=== PATIENT | female | born 1955 | race Caucasian/White ===

== ENCOUNTER 2021-02-09 13:54 | Inpatient (IN) | payer OTHER ==
[~2021-02-09] VITALS: Ht 157.5 cm; Wt 89.4 kg
[~2021-02-09 13:54] MED LIST: MIRAPEX0.5 MG PO; NORVASC5 MG PO; ZOLOFT50 MG PO
[2021-02-09 14:41] LABS: HEMOGLOBIN 15.3 gm/dl (12.3-15.3); RED BLOOD COUNT 4.87 M/UL (4.00-5.10); WHITE BLOOD COUNT 9.3 K/UL (4.5-11.0)
[2021-02-09 15:00] LABS: BUN/CREATININE RATIO 16 (0-10)
[2021-02-09] MEDS ORDERED: ATROVENT HFA12.9 GM PO (17:01)
[2021-02-10 04:30] LABS: HEMOGLOBIN 14.5 gm/dl (12.3-15.3); RED BLOOD COUNT 4.62 M/UL (4.00-5.10); WHITE BLOOD COUNT 9.6 K/UL (4.5-11.0)
[2021-02-10 17:21] LABS: ACINETOBACTER BAUMANNII Not Detected (Negative); CANDIDA ALBICANS Not Detected (Negative); CANDIDA KRUSEI Not Detected (Negative); CANDIDA TROPICALIS Not Detected (Negative); ENTEROCOCCUS Not Detected (Negative); ESCHERICHIA COLI Not Detected (Negative); HAEMOPHILUS INFLUENZAE Not Detected (Negative); KLEBSIELLA OXYTOCA Not Detected (Negative); KLEBSIELLA PNEUMONIAE Not Detected (Negative); KPC-CARBAPENEM-RESISTANCE GENE Not Detected (Negative); PROTEUS Not Detected (Negative); PSEUDOMONAS AERUGINOSA Not Detected (Negative); SERRATIA MARCESANS Not Detected (Negative); STAPHYLOCOCCUS AUREUS Not Detected (Negative); STREP AGALACTIAE (GROUP B) Not Detected (Negative); STREP PYOGENES (GROUP A) Not Detected (Negative); STREPTOCOCCUS Not Detected (Negative); mecA (METHICILLIN RESIST GENE Not Detected (Negative); vanA/B (VANCOMYCIN RESIST GENE Not Detected (Negative)
[2021-02-10 18:45] LABS: STAPHYLOCOCCUS DETECTED (Negative)
[2021-02-11 03:50] LABS: HEMOGLOBIN 12.8 gm/dl (12.3-15.3); WHITE BLOOD COUNT 8.5 K/UL (4.5-11.0)
[2021-02-11 04:09] LABS: RED BLOOD COUNT 4.15 M/UL (4.00-5.10)
[2021-02-11 04:15] LABS: BUN/CREATININE RATIO 18 (0-10)
[2021-02-12 04:27] LABS: RED BLOOD COUNT 3.92 M/UL (4.00-5.10); WHITE BLOOD COUNT 7.9 K/UL (4.5-11.0)
[2021-02-12 04:58] LABS: BUN/CREATININE RATIO 23 (0-10)
[2021-02-13 05:11] LABS: RED BLOOD COUNT 3.89 M/UL (4.00-5.10)
[2021-02-13 05:12] LABS: WHITE BLOOD COUNT 10.3 K/UL (4.5-11.0)
[2021-02-13 05:33] LABS: BUN/CREATININE RATIO 22 (0-10)
[2021-02-14 04:20] LABS: HEMOGLOBIN 11.9 gm/dl (12.3-15.3); RED BLOOD COUNT 3.93 M/UL (4.00-5.10); WHITE BLOOD COUNT 8.3 K/UL (4.5-11.0)
[2021-02-14 04:28] LABS: BUN/CREATININE RATIO 27 (0-10)
--- NOTE | 2021-02-14 09:24 | NUR ---
PATIENT O2 SATS ARE FLUCTUATING BETWEEN 85%AND 88%. PATIENT IS NO ACUTE DISTRESS. PROVIDER MADE AWARE. NEW ORDERS GIVEN.
[2021-02-14 13:13] LABS: ORGANISM ID Not indicated. (.); SPECIMEN SOURCE Urine (.); STREPTOCOCCUS PNEUMONIAE AG Negative (Negative)
[2021-02-15 05:19] LABS: RED BLOOD COUNT 3.93 M/UL (4.00-5.10); WHITE BLOOD COUNT 10.3 K/UL (4.5-11.0)
[2021-02-15 05:37] LABS: BUN/CREATININE RATIO 28 (0-10)
[2021-02-16 05:29] LABS: HEMOGLOBIN 12.9 gm/dl (12.3-15.3); RED BLOOD COUNT 4.23 M/UL (4.00-5.10); WHITE BLOOD COUNT 11.1 K/UL (4.5-11.0)
[2021-02-16 06:03] LABS: BUN/CREATININE RATIO 30 (0-10)
[2021-02-17 06:00] LABS: HEMOGLOBIN 13.2 gm/dl (12.3-15.3); RED BLOOD COUNT 4.53 M/UL (4.00-5.10); WHITE BLOOD COUNT 15.4 K/UL (4.5-11.0)
[2021-02-17 06:09] LABS: BUN/CREATININE RATIO 36 (0-10)
[2021-02-17] MEDS ORDERED: HUMIBID LA TAB600 MG PO (13:19)
[2021-02-17] MEDS ORDERED: PREDNISONE 20 M20 MG PO (13:19)
[2021-02-17] MEDS ORDERED: LEVOFLOXACIN750 MG PO (13:19)
[2021-02-17] MEDS ORDERED: PROAIR HFA8.5 GM INH (13:33)
== END 2021-02-17 14:57 | disposition home or self-care (01) | DRG 871 ==
LOC: ER1 13:54 → MED SURG 4 16:41 → CDU 16:41 → MED SURG 4 18:49
PROVIDERS: Emergency Medicine; Internal Medicine; Internal Medicine Pulmonary Disease; Physician Assistant; ADMIT Family Medicine
DX: A41.9 Sepsis, unspecified organism (principal); J18.9 Pneumonia, unspecified organism; J96.21 Acute and chronic respiratory failure with hypoxia; I50.33 Acute on chronic diastolic (congestive) heart failure; E87.1 Hypo-osmolality and hyponatremia; J84.9 Interstitial pulmonary disease, unspecified; J44.0 Chronic obstructive pulmonary disease with (acute) lower respiratory infection; J44.1 Chronic obstructive pulmonary disease with (acute) exacerbation; C82.91 Follicular lymphoma, unspecified, lymph nodes of head, face, and neck; J98.11 Atelectasis; R65.20 Severe sepsis without septic shock; E87.6 Hypokalemia; I11.0 Hypertensive heart disease with heart failure; F32.9 Major depressive disorder, single episode, unspecified; F17.210 Nicotine dependence, cigarettes, uncomplicated; G25.81 Restless legs syndrome; Z99.81 Dependence on supplemental oxygen; Z20.822 Contact with and (suspected) exposure to COVID-19; Z79.899 Other long term (current) drug therapy; R50.9 Fever, unspecified; Z88.5 Allergy status to narcotic agent; Z88.2 Allergy status to sulfonamides; Z82.8 Family history of other disabilities and chronic diseases leading to disablement, not elsewhere classified
CPT/HCPCS: ECHO; 36415; 36600; 71045; 71046; 71250; 80048; 80053; 80202; 81001; 82550; 82553; 82728; 82803; 82962; 83605; 83615; 83690; 83735; 83874; 83880; 84100; 84132; 84484; 85025; 85027; 85384; 85610; 85730; 86140; 87040; 87070; 87077; 87081; 87150; 87186; 87205; 87278; 87899; 93005; 93306; 94640; 94664; 94760; 96374; 97116-GP-CQ; 97161; 97166; 97530-GP-CQ; 97535; 99285; A6212; J0456; J0696; J1650; J1940; J2543; J2920; J3370; J7030; J7070; U0002

== ENCOUNTER 2022-04-22 08:56 | Emergency (ER) | payer MEDICARE, BC ==
[~2022-04-22 08:56] MED LIST changes: +ATROVENT HFA12.9 GM PO; +HUMIBID LA TAB600 MG PO; +LEVOFLOXACIN750 MG PO; +PREDNISONE 20 M20 MG PO; +PROAIR HFA8.5 GM INH
[2022-04-22 09:27] LABS: HEMOGLOBIN 16.7 gm/dl (12.3-15.3); RED BLOOD COUNT 5.23 M/UL (4.00-5.10); WHITE BLOOD COUNT 9.2 K/UL (4.5-11.0)
[2022-04-22 10:24] LABS: BUN/CREATININE RATIO 14 (0-10)
[2022-04-22] MEDS ORDERED: OMNICEF 300 MG300 MG PO (13:07)
== END 2022-04-22 13:40 | disposition home or self-care (01) ==
LOC: ER1 08:56
PROVIDERS: Physician Assistant
DX: R00.2 Palpitations (principal); I10 Essential (primary) hypertension; N39.0 Urinary tract infection, site not specified; E78.5 Hyperlipidemia, unspecified; J44.9 Chronic obstructive pulmonary disease, unspecified; Z88.5 Allergy status to narcotic agent; Z88.2 Allergy status to sulfonamides; Z20.822 Contact with and (suspected) exposure to COVID-19
CPT/HCPCS: 71045; 80053; 81001; 82550; 82553; 83880; 84439; 84443; 84484; 85025; 93005; 93242; 94664; 96374; 99285; J0360; U0002